=== PATIENT | male | born 1970 | race Caucasian/White ===

== ENCOUNTER → 2017-08-26 | Outpatient (CLI) | payer BC ==
[~2017-08-26] MED LIST: ALLEGRA; ALLEGRA D; COLE625T PO
--- NOTE | 2017-08-27 06:38 | SPLIT NIGHT TECHNICIAN REPORT ---
[facility] Split Night Polysomnogram - Airplane Mechanic Apprentice Report Study date: 08/26/2017 Referring Physician: Dr. Vogt Name: SIMBA BOYER Airplane Mechanic Apprentice: PARISA Ham. Date of : 1970 Height: 46 years, Height 5' 8" Sex: Male Weight: 181 lbs Age: 46 Neck Circum: 14 in BMI: Medications: 27.52 LISINOPRIL 20 MG, SYMBICORT 160-4.5 MCG/ACT, PANTOPRAZOLE 40 MG, SIMVASTATIN 20 MG, GAS-X 80 MG, MULTI VIT, BIMAL 180 MG Patient History 46 yr-old male here for a split study. He has had previous sleep testing. He was found to be positive for RENATE about eight years ago and has been using CPAP since then. He has recently been experiencing an increase in his blood pressure. He is back to assess his RENATE and pressure settings. His [place] scale is 7. The test was started on room air. ETCO2 testing is included in this study. Room 1 Parameters Monitored NPSG: E1-M2, E2-M1, Fp1-M2, Fp2-M1, F3-M2, F4-M2, F4-M1, C3-M2, C4-M2, C4-M1, O1-M2, O2-M2, O2-M1, T3-M2, T4-M1, P3-M2, P4-M1, CHIN1, CHIN2, HR, EKG, Legs, PFLOW, SNOR, FLOW, CFLOW, Tidal Volume, THOR, ABDO, SpO2, PLTH, CPRESS, ETCO2 Wave, ETCO2, pH SLEEP SUMMARY DATA DIAGNOSTIC TREATMENT Lights Out: 10:32:55 PM 1:18:25 AM Lights On: 1:13:25 AM 5:30:55 AM Total Recording Time (TRT): 160.5 min. 252.5 min. Total Sleep Time (TST): 131.5 min. 223.0 min. NREM Time: 131.5 min. 154.5 min. REM Time: 0.0 min. 68.5 min. Sleep Period Time (SPT): 157.5 min. 233.0 min. Sleep Efficiency (SE): 82 % 88 % Sleep Latency: 3.0 min. 19.5 min. Arousal Index: 23.7 9.1 PAP Treatment Levels: 7 * Optimal Pressure(s) SLEEP STAGING DATA DIAGNOSTIC TREATMENT Duration (min) TST % Duration (min) TST % Stage Wake: 29.0 min. -- 29.5 min. -- WASO: 26.0 min. -- 10.0 min. -- NREM: 131.5 min. 100 % 154.5 min. 69 % Stage N1: 36.5 min. 28 % 25.0 min. 11 % Stage N2: 95.0 min. 72 % 129.0 min. 58 % Stage N3: 0.0 min. 0 % 0.5 min. 0 % REM: 0.0 min. 0 % 68.5 min. 31 % POSITIONAL DATA Event Count Index Event Count Index Supine: 45 20.1 4 0.8 Supine NREM: 45 20.1 4 1.2 Supine REM: N/A N/A 0 0 Non-Supine: N/A N/A N/A N/A Non-Supine NREM: N/A N/A N/A N/A Non-Supine REM: N/A N/A N/A N/A AROUSAL SUMMARY DATA: Event Count Index Event Count Index Apnea Arousals: 0 0.0 0 0.0 Hypopnea Arousals: 10 4.6 1 0.3 Snore Arousals: 3 1.4 0 0.0 PLM Arousals: 0 0.0 0 0.0 Non-Specific Arousals: 34 15.5 31 8.3 Total Arousals: 52 23.7 34 9.1 MYOCLONUS (PLM) Event Count Index Event Count Index PLM: 0 0.0 0 0.0 PLM AROUSAL: 0 0.0 0 0.0 PLM W/O AROUSAL 0 0.0 0 0.0 PLM W/RESP EVENT 0 0.0 0 0.0 MYOCLONUS (PLM) Event Count Index Event Count Index LM: 7 13.2 28 7.5 LM AROUSAL: 7 3.2 1 0.3 LM W/O AROUSAL LM W/RESP EVENT LM NON SPECIFIC 21 9.6 27 7.3 HEART RATE DATA DIAGNOSTIC TREATMENT Sleep (bpm): 68 69 REM (bpm): N/A 95 NREM (bpm): 93 95 Tachycardia Count: 0 0 Tachycardia Duration: 0.00 0 Bradycardia Count: 0 0 Bradycardia Duration: 0.00 0 DIAGNOSTIC PORTION TREATMENT PORTION RESPIRATORY DATA Event Count Index Event Count Index AHI: -- 20.1 -- 0.8 RDI: -- 20.5 -- 1 Obstructive Apnea: 0 0.0 0 0.0 Central Apnea: 0 0.0 0 0.0 Mixed Apnea: 0 0.0 0 0.0 Hypopnea: 44 20.1 3 0.8 RERA: 1 0.5 1 0.3 Total Apneas: 0 0.0 0 0.0 RESPIRATORY DATA REM NREM SLEEP REM NREM SLEEP Supine Position: Obstructive Apneas: N/A 0 0 0 0 0 Central Apneas: N/A 0 0 0 0 0 Mixed Apneas: N/A 0 0 0 0 0 Hypopneas: N/A 44 44 0 3 3 RERA N/A 1 1 0 1 1 Total Supine Events: N/A 45 45 0 4 4 Supine AHI: N/A 20.1 20.1 0 1.2 0.8 Supine RDI: N/A 20.5 20.5 0.0 1.6 1.1 REM NREM SLEEP REM NREM SLEEP Non-Supine Position: Obstructive Apneas: N/A N/A N/A N/A N/A N/A Central Apneas: N/A N/A N/A N/A N/A N/A Mixed Apneas: N/A N/A N/A N/A N/A N/A Hypopneas: N/A N/A N/A N/A N/A N/A RERA N/A N/A N/A N/A N/A N/A Total Supine Events: N/A N/A N/A N/A N/A N/A Supine AHI: N/A N/A N/A N/A N/A N/A Supine RDI: N/A N/A N/A N/A N/A N/A OXYGEN DESTAURATION DATA: Event Count Index Event Count Index REM Desaturations: N/A N/A 1 0.9 NREM Desaturations: 58 26.5 4 1.6 SNORE DATA DIAGNOSTIC TREATMENT Snore Time: 0.8 1:37:55 AM Snore TST%: 1 0 Snore Arousal Count: 3 0 Snore Arousal Index: 1.4 0.0 Desaturation Event Summary: Minimum %SpO2 Event Count Mean/Min/Max Duration(sec.) Desaturation Index % Time In Bed > 90 67 29.9 / 12.5 / 60.0 10.1 97.5 86 - 90 0 N/A 0.0 2.5 81 - 85 0 N/A 0.0 0.0 76 - 80 0 N/A 0.0 0.0 71 - 75 0 N/A 0.0 0.0 66 - 70 0 N/A 0.0 0.0 61 - 65 0 N/A 0.0 0.0 56 - 60 0 N/A 0.0 0.0 51 - 55 0 N/A 0.0 0.0 < 50 0 N/A 0.0 0.0 OXYGEN SATURATION DATA DIAGNOSTIC TREATMENT SpO2 Mean Sleep: 93 % 95 % SpO2 Mean REM: N/A % 95 % SpO2 Mean NREM: 93 % 95 % SpO2 Minimum Sleep: 84 % 91 % SpO2 Minimum REM: N/A % 93 % SpO2 Minimum NREM: 84 % 91 % Time Below 90% (TST): 2.1 0.0 Time Below 88% (TST): 0.3 0.0 Total REM NREM Awake <50% 0.0 min. 0.0 min. 0.0 min. 0.0 min. 51 - 60% 0.0 min. 0.0 min. 0.0 min. 0.0 min. 61 - 70% 0.0 min. 0.0 min. 0.0 min. 0.0 min. 71 - 80% 0.0 min. 0.0 min. 0.0 min. 0.0 min. 81 - 90% 10.3 min. 0.0 min. 9.4 min. 0.9 min. 91 - 100% 396.3 min. 68.5 min. 276.6 min. 51.2 min. Average 94 95 94 95 Minimum SpO2 79 93 84 79 Desaturation Event Index 9.7 0.9 13.0 4.1 # Desat. Events below 89% 5 N/A 5 0 Time(%) with Saturation below 89% 0.3 0.0 0.1 0.1 Time(min.) with Saturation below 89% 1.1 0.0 0.6 0.5 Recording Airplane Mechanic Apprentice Comments: Mr. Boyer slept only in the supine position. No cardiac arrhythmia or PLMs noted. No bruxism noted. Snoring was noted and scored as a 2 on a scale of 1 through 5. (0=no snoring, 5=snoring loud enough to be heard through a closed door or down the hernandes way) At 1:11 am, he met specific Split-Night criteria during the diagnostic portion of this study. CPAP was initiated at +7 CMH2O per the doctor's specific order and remained at a level of +7 CMH2O, Cflex 2 which nearly eliminated all respiratory events and snoring. He used his own AirTouch F20 full face mask size small from [employer] during the titration. He awoke to use the restroom one time during the night. Mr. Boyer stated that he slept about the same as usual. The final report will be interpreted and signed by a sleep physician. The completed physician report will then be placed in the patient medical record. Therapy Event: Therapy (cm H20) 0 7 Total Time at Pressure (min.) 160.5 252.5 TST at Pressure (min.) 131.5 223.0 # Periods 1 1 Sleep Onset (min.) 3.0 19.5 REM Onset (min.) N/A 62.0 Sleep Efficiency % 81 88 Wakefulness (%) 18.1 11.7 Wakefulness (min.) 29.0 29.5 NREM 1 (%) 22.7 9.9 NREM 1 (min.) 36.5 25.0 NREM 2 (%) 59.2 51.1 NREM 2 (min.) 95.0 129.0 NREM 3 (%) 0.0 0.2 NREM 3 (min.) 0.0 0.5 REM (%) 0.0 27.1 REM (min.) 0.0 68.5 # Arousals 52 34 Arousal Index 23.7 9.1 # Snore 35 12 Snore Index 16.0 3.2 AHI 20.1 0.8 AHI Supine 20.1 0.8 AHI Non-Supine N/A N/A NREM AHI 20.1 1.2 REM AHI N/A 0.0 RDI 20.5 1.1 # Obstructive 0 0 # Central Ap 0 0 # Mixed 0 0 # Hypopneas 44 3 RERAS 1 1 Total Respiratory Events 45 4 Time Below SpO2 89.00% (min.) 0.6 0.0 Mean NREM SpO2 (%) 93 95 Mean REM SpO2 (%) N/A 95 Mean Sleep SpO2 (%) 93 95 Min NREM SpO2 (%) 84 91 Min REM SpO2 (%) N/A 93 Position Supine (min.) 131.5 223.0 Position Non-supine (min.) 0.0 0.0 LM Index Sleep 13.2 7.5 LM Index NREM 13.2 7.8 LM Index REM N/A 7.0 Mean Heart Rate (bpm) 68 69 Min Heart Rate (bpm) 56 53 CPAP REPORT Therapy Detail Time / Page # Comment CPAP 7 cm H2O Full Face Mask Flex Pressure Relief Humidifier on 1:17:04 AM / pg. 521 HE HAS BEEN ASLEEP FOR OVER 2 HOURS AND HIS AHI IS ABOVE 5 (PER DOCTOR'S ORDER) AND STARTING AT 7 CMH2O PER DOCTOR'S ORDER
--- NOTE | 2017-08-28 09:00 | POLYSOMNOGRAPH REPORT ---
CLINICAL DATA: A 46-year-old male with BMI of 27.[address] Vogt for a split night study. He has had sleep apnea for 8 years and has been on CPAP. Recently, he has had an increase in his blood pressure and he is back to assess his sleep apnea and pressure settings. His [place] sleepiness score is 7/24. This was a split night study. SLEEP ARCHITECTURE: For the diagnostic portion of the study, sleep period time was 157.5 minutes. Total sleep time was 131.5 minutes, all non-REM sleep. Sleep latency was 3 minutes. Sleep efficiency was 82%. Sleep consisted of stage N1 28% and stage N2 72%. For the treatment portion of the study, sleep period time was 233 minutes. Total sleep time was 223 minutes divided between 154.5 minutes of non-REM sleep and 68.5 minutes of REM sleep. Sleep latency was 19.5 minutes. Sleep efficiency was 88%. Sleep consisted of stage N1 11%, stage N2 58%, and REM 31%. AROUSAL DATA: Prior to treatment, 52 arousals were recorded for an index of 23.7 per hour. During treatment, 34 arousals were recorded for an index of 9.1 per hour. PLM DATA: Prior to treatment, 21 limb movements during sleep were noted for an index of 9.6 per hour. During treatment, 28 limb movements during sleep were noted for an index of 7.5 per hour. EKG: Heart rates ranged from 68-95 beats per minute. No arrhythmias were noted. RESPIRATORY DATA: Prior to treatment, moderate RENATE was documented. The AHI was 20.1. There were 44 hypopneic episodes. During treatment, the average AHI was 0.8. There were 3 hypopneic episodes. OXIMETRY DATA: Nocturnal hypoxemia was seen prior to treatment. Oxygen jas was 84% during non-REM sleep prior to treatment. The mean saturation during treatment with CPAP was 95%. SORORITY MOTHER'S COMMENTS AND TREATMENT SUMMARY: The patient slept supine. Snoring was mild, rated 2 on a scale of 1-5. At 1:11 a.m., he met split night criteria. He used his own AirTouch F20 full facemask size small from [employer]. He was started on CPAP and titrated up to his final pressure of 7 cm of water pressure, C-Flex setting 2. At his final pressure setting, he slept for 223 minutes with an AHI of 0.8. IMPRESSION: Moderate sleep apnea/hypopnea corrected with CPAP 7 cm of water pressure, C-Flex setting 2. RECOMMENDATIONS: The patient's CPAP should be set at 7 cm of water pressure. MTDD
== END | disposition home or self-care (01) ==
LOC: C.NEUR 20:00
PROVIDERS: ATTEND Internal Medicine
DX: G47.33 Obstructive sleep apnea (adult) (pediatric) (principal)